=== PATIENT | male | born 1985 | race Hispanic/Latino ===

== ENCOUNTER 2018-10-29 05:28 | Observation (INO) | payer BC ==
--- NOTE | 2018-10-28 09:30 | Diagnostic Imaging Report ---
EXAM: CHEST 2 VIEWS, PA and lateral DATE: 10/28/2018 Time stamp on exam: 9:04 AM INDICATION: Preoperative COMPARISON: None FINDINGS: LINES/TUBES: None LUNGS: No consolidations or edema. PLEURA: No effusions or pneumothorax. HEART AND MEDIASTINUM: Normal size and contour. BONES AND SOFT TISSUES: No acute findings. IMPRESSION: No acute thoracic abnormality. Signed by: Dr. Blake Gaxiola DO on 10/28/2018 9:27 AM
[2018-10-28 10:00] LABS: BASOPHILS # (AUTO) 0.1 (0.0-0.1); BASOPHILS % 1.3 % (0.0-1.0); EOSINOPHILS # (AUTO) 0.1 (0.0-0.4); EOSINOPHILS % 2.1 % (0.0-6.0); HEMATOCRIT 49.2 % (38.2-49.6); HEMOGLOBIN 16.8 g/dL (14.0-18.0); LYMPHOCYTES # (AUTO) 1.5 (1.0-3.2); LYMPHOCYTES % 28.9 % (18.0-39.1); MEAN CORPUSCULAR HEMOGLOBIN 27.5 pg (28-32); MEAN CORPUSCULAR HGB CONC 34.1 g/dL (31-35); MEAN CORPUSCULAR VOLUME 80.5 fL (81-99); MONOCYTES # (AUTO) 0.5 (0.2-0.8); MONOCYTES % 9.4 % (4.4-11.3); PLATELET COUNT 284 x10e3/uL (140-360); RED BLOOD COUNT 6.11 x10e6/uL (4.3-5.7); RED CELL DISTRIBUTION WIDTH 11.8 % (11.7-14.4)
[2018-10-28 10:08] LABS: ANION GAP 14.6 mmol/L (8-16); BLOOD UREA NITROGEN 15 mg/dL (7-26); BUN/CREATININE RATIO 16 (6-25); CARBON DIOXIDE 26 mmol/L (22-29); CHLORIDE 98 mmol/L (98-107); CREATININE, SERUM 0.94 mg/dL (0.72-1.25); EST GLOMERULAR FILTRATION RATE > 60 ML/MIN (60-); GLUCOSE 92 mg/dL (74-118); POTASSIUM 3.6 mmol/L (3.5-5.1); SODIUM 135 mmol/L (136-145)
[~2018-10-29] VITALS: Ht 177.8 cm; Wt 110.2 kg
[~2018-10-29 05:28] MED LIST: HYDROCHLOROTHIA25 MG PO; LEXAPRO10 MG PO; LOTREL 10-20 M1 EACH PO; MULTIVITAMINS1 EAC7 PO; NAPROXEN250 MG PO; ULTRAM50 MG PO; ZYRTEC10 M3 PO
--- OUTSIDE RECORDS SUMMARY | 2018-10-29 05:31 | XMS REPORT ---
Author [facility] Address Unknown Phone Unavailable Care Team Providers Care Rigging Worker Name Role Phone NIKKI MASSEY Unavailable Unavailable Problems This patient has no known problems. Allergies, Adverse Reactions, Alerts This patient has no known allergies or adverse reactions. Medications This patient has no known medications. Results Test Description Test Time Test Comments Text Results Atomic Results Result Comments CHEST 2 VIEWS 2018-10-28 09:25:00 [place] [address] Patient Name: TJ COSME MR #: [id number] : 1985 Age/Sex: 32/M Req #: [id number] [facility] Physician: Ordered by: NIKKI MASSEY MD Report #: [id number] Location: OR Room/Bed: Procedure: [id number] DX/CHEST 2 VIEWS Exam Date: 10/28/18 Exam Time: 0900 REPORT STATUS: Signed EXAM: CHEST 2 VIEWS, PA and lateral DATE: 10/28/2018 Time s tamp on exam: 9:04 AM INDICATION: Preoperative COMPARISON: None FINDINGS: LINES/TUBES: None LUNGS: No consolidations or edema. PLEURA: No effusions or pneumothorax. HEART AND MEDIASTINUM: Normal size and contour. BONES AND SOFT TISSUES: No acute findings. IMPRESSION: No acute thoracic abnormality. Signed by: Dr. Cristopher Gaxiola DO on 10/28/2018 9:27 AM Dictated By: CRISTOPHER GAXIOLA DO 6 Transcribed By: KAYLENE on 10/28/18926 COPY TO: NIKKI MASSEY MD
[2018-10-29] MEDS ORDERED: CEFAZOLIN SOD 2 GM/D5W 50ML 50 ML IV ONE (06:06)
[2018-10-29] MEDS ORDERED: THROMBIN FOR SOLN 5,000 UNIT VIAL ONE (06:42)
[2018-10-29] MEDS ORDERED: BUPIVACAINE 0.5%/EPI 30 ML SDV INJ ONE (06:42)
[2018-10-29 06:43] LABS: INR 0.82; PROTHROMBIN TIME 12.1 seconds (11.9-14.5)
[2018-10-29] MEDS ORDERED: BACITRACIN 50,000 UNIT VIAL ONE (06:43)
[2018-10-29] MEDS ORDERED: GELATIN SPONGE 12-7MM ONE (06:43)
[2018-10-29 06:44] LABS: PARTIAL THROMBOPLASTIN TIME 33.1 seconds (23.8-35.5)
--- NOTE | 2018-10-29 07:10 | NUR ---
SPIRITUAL CARE - Pre-Surgery Assessment: Pt in bed. Pt's parents at bedside. Pt reported supportive attention from family and friends. Intervention: I provided pastoral presence, hospitality, and sympathetic listening. I acquainted pt with availability of flight control tower operator while hospitalized. Outcome: Pt expressed appreciation for visit. No need for follow up indicated at this time. JOAQUINA Guzmanlain Spiritual Care Department O: [phone] Pager: [phone] ([phone] calling from)
[2018-10-29] MEDS ORDERED: ACETAMINOPHEN 1000 MG/100 ML 100 ML IV ONE (07:22)
[2018-10-29] MEDS ORDERED: LIDOCAINE HCL (LTA) 4 ML SOLN ONE (07:22)
[2018-10-29] MEDS: LACTATED RINGER'S 1,000 ML IV SCH ×2 (08:57→17:05)
[2018-10-29] MEDS ORDERED: NON-FORMULARY MEDICATION (Amlodipine Besylate/Benazepril (Lotrel 10-20 Mg Capsule) 1 CAP) PO SCH (09:00)
[2018-10-29] MEDS ORDERED: ACETAMINOPHEN 325 MG TAB PO PRN (09:00)
[2018-10-29] MEDS ORDERED: PROMETHAZINE HCL (IM) 25 MG/ML VIAL IM PRN (09:00)
[2018-10-29] MEDS ORDERED: ONDANSETRON HCL INJ 2MG/ML 2ML 2 MG/ML VIAL IV PRN (09:00)
[2018-10-29] MEDS ORDERED: HYDROMORPHONE 2MG/ML 2 MG/ML ML IV PRN (09:00)
[2018-10-29] MEDS ORDERED: MAGNESIUM/ALUMINUM/SIMETHICONE 30 ML UDC PO PRN (09:00)
[2018-10-29] MEDS ORDERED: MORPHINE SULFATE 5 MG/ML VIAL IM PRN (09:00)
[2018-10-29] MEDS ORDERED: FENTANYL CITRATE/PF 100MCG/2 ML INJ ONE ×2 (09:18→17:49)
[2018-10-29 09:45] VITALS: BP 108/64
[2018-10-29 09:50] VITALS: BP 108/64
[2018-10-29] MEDS: ESCITALOPRAM OXALATE 10 MG TAB PO SCH (11:12)
[2018-10-29] MEDS: HYDROCHLOROTHIAZIDE 25 MG TAB PO SCH (11:12)
[2018-10-29] MEDS: AMLODIPINE BESYLATE 10 MG TAB PO SCH ×2 (11:13→11:26)
[2018-10-29] MEDS: LORATADINE 10 MG TAB PO SCH (11:13)
[2018-10-29] MEDS: BENAZEPRIL HCL 10 MG TAB PO SCH (11:26)
[2018-10-29 12:00] VITALS: BP 119/70
[2018-10-29 12:46] VITALS: BP 119/70
[2018-10-29] MEDS: CEFAZOLIN SOD 1 GM/NS 50ML 50 ML IV SCH ×2 (13:25→22:26)
[2018-10-29] MEDS: OXYCODONE/ACETAMINOPHEN 5-325 1 EACH TABLET PO PRN ×2 (13:38→18:15)
[2018-10-29] MEDS ORDERED: ONDANSETRON HCL INJ 2MG/ML 2ML 2 MG/ML VIAL ONE ×2 (14:27→14:34)
[2018-10-29] MEDS ORDERED: DEXAMETHASONE SOD PHOS INJ 4 MG/ML VIAL ONE ×2 (14:27→14:34)
[2018-10-29] MEDS ORDERED: EPHEDRINE SULFATE INJ 50 MG/10 ML SYR ONE (14:27)
[2018-10-29] MEDS ORDERED: SEVOFLURANE INHAL SOLN 250 ML PEN BTL ONE ×2 (14:27→14:34)
[2018-10-29] MEDS ORDERED: PROPOFOL IV EMULSION 10 MG/ML 20 ML VIAL ONE ×2 (14:27→14:34)
[2018-10-29] MEDS ORDERED: LIDOCAINE HCL 2% LOCAL INJ 5 ML SDV VIAL INJ ONE ×2 (14:27→14:34)
[2018-10-29] MEDS ORDERED: GLYCOPYRROLATE INJ 1MG/ 5 ML SYR ONE (14:27)
[2018-10-29] MEDS ORDERED: NEOSTIGMINE 5 MG/5ML SYR ONE (14:27)
[2018-10-29] MEDS ORDERED: ROCURONIUM BROMIDE 10 MG/ML 5ML VIAL ONE ×2 (14:27→14:34)
[2018-10-29] MEDS ORDERED: ACETAMINOPHEN 1000 MG/100 ML IV ONE (14:34)
[2018-10-29] MEDS: CEPACOL SORE THROAT LOZENGES PO PRN ×4 (16:07→22:26)
[2018-10-29] MEDS: CARISOPRODOL 350 MG TAB PO PRN ×2 (16:07→20:05)
[2018-10-29 16:37] VITALS: BP 126/73
[2018-10-29] MEDS ORDERED: MIDAZOLAM HCL 2 MG/2 ML VIAL ONE (17:49)
--- NOTE | 2018-10-29 19:03 | Operative Report ---
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 PROCEDURES: 1. C5-6 anterior cervical diskectomy and microsurgical osteophyte resection and allograft fusion, 80162. 2. Preparation of MTF corticocancellous allograft, 69103. 3. C5-6 anterior cervical plating with Synthes ZPN plate, 07830. ANESTHESIA: General. INDICATION: The patient is a 32-year-old man, who presents with left-sided C5-6 disk osteophyte complex symptomatic with left C6 radiculopathy and was taken to the operating room for anterior cervical decompression and fusion. PROCEDURE IN DETAIL: After induction of general anesthesia, the patient was placed on the operating table in supine position. The right side of the neck was prepped and draped in sterile fashion. The fluoroscopic C-arm was positioned in cross-table lateral orientation. A transverse incision was created on the right side of the neck. The platysma was divided in line with the incision and subplatysmal dissection was carried out and avascular plane of the dissection was developed medially in sternocleidomastoid muscle and was followed medially to the carotid sheath to the anterior part of the cervical spine. The deep cervical fascia was opened and esophagus was retracted to the left. The attachments of the longus colli muscles to the anterolateral aspects of vertebral bodies of C5 and C6 were divided. The anterior longitudinal ligament was resected. The [place] posts were inserted into C5 and C6 and the [place] distractor was used distract the disk space. The anterior annulus of the disk was incised with #11 blade. The contents of the disk were thoroughly evacuated with angled curettes and pituitary rongeurs. The posterior osteophytes were meticulously drilled with a 2 mm cutting blade until they were completely removed. The posterior annulus of the disk, herniated disk material, and the posterior longitudinal ligament were resected layer by layer until the dura was fully exposed and decompressed. The medial aspects of the uncinate processes were resected bilaterally with attention given to the left side to fully expose and decompress the origins of both C6 nerve roots. After satisfactory decompression had been achieved, the endplates were prepared for fusion. The disk space was sized and found to be 8 mm in height. A piece of MTF corticocancellous allograft measuring 8 mm in thickness was selected and prepared in saline and loaded onto a Synthes ZPN plate. The plate was inserted into the C5-6 disk space under distraction and lateral fluoroscope guidance and tamped in place until the anterior margin of the plate was flush with the anterior margin of the vertebral bodies. The plate was then screwed to the C5 and C6 endplates with two pairs of 14 mm screws. All the screws were locked and excellent construct was obtained. The wound was copiously irrigated with bacitracin solution. Meticulous hemostasis was secured. Retraction was removed. The platysma was closed with 3-0 Vicryl sutures. The skin was closed with 4-0 Vicryl sutures in subcuticular fashion. Steri-strips and dressing were applied. The patient was awakened, extubated, and taken to postanesthesia care unit in stable condition. No intraoperative complications were encountered. Estimated blood loss was 10 mL. Addy Barrientos MD PP/ELSI /[id number]
[2018-10-29 20:00] VITALS: BP 126/63
--- NOTE | 2018-10-29 20:05 | NUR ---
DRESSING DRY AND INTACT TO THE ANTERIOR NECK WITH SOFT COLLAR ON, NO RESPIRATORY DISTRESS OBSERVED. PATIENT C/O PAIN TO THE NECK WITH PAIN SCORE #4 AND THROAT IRRITATION, MEDICATED WITH SOMA 1TAB AND CEPACOL 1TAB ORDERED. WARM BROTH GIVEN, CALL LIGHT WITHIN EASY REACH, INSTRUCTED TO CALL FOR ASSISTANCE NEEDED.
[2018-10-29] MEDS ORDERED: ZOLPIDEM TARTRATE 5 MG TAB PO PRN (21:00)
[2018-10-30] VITALS: BP 147/80
--- NOTE | 2018-10-30 00:41 | NUR ---
PATIENT IS ASLEEP, HE'S EASY TO AROUSE. HE STATES MILD PAIN TO THE NECK BUT DOES NOT WANT PAIN MEDICATION AT THIS TIME. CALL LIGHT WITHIN EASY REACH, INSTRUCTED TO CALL FOR ASSISTANCE NEEDED.
[2018-10-30] MEDS: OXYCODONE/ACETAMINOPHEN 5-325 1 EACH TABLET PO PRN ×2 (02:07→06:48)
[2018-10-30 04:00] VITALS: BP 114/65
--- NOTE | 2018-10-30 06:29 | NUR ---
PATIENT IS OFF THE UNIT PER WHEELCHAIR TO RADIOLOGY FOR X-RAY.
--- NOTE | 2018-10-30 06:43 | Diagnostic Imaging Report ---
Cervical Spine, 2 views HISTORY: Pain COMPARISON: None. FINDINGS: Limited sensitivity for detection of subtle fractures and ligamentous abnormalities. On the lateral view, the cervical spine is visualized from the skull base to C7. The alignment is normal. No acute displaced fracture involving the visualized cervical spine. Status post C5-C6 disc spacer placement. Vertebral body heights are maintained. Mild prevertebral soft tissue swelling and emphysema, likely postsurgical. IMPRESSION: Status post C5-C6 disc spacer placement. Mild prevertebral soft tissue swelling and emphysema, likely postsurgical. Signed by: Dr. Kenan Paniagua MD on 10/30/2018 6:40 AM
[2018-10-30] MEDS: CEPACOL SORE THROAT LOZENGES PO PRN (06:48)
[2018-10-30] MEDS: CEFAZOLIN SOD 1 GM/NS 50ML 50 ML IV SCH (06:48)
--- NOTE | 2018-10-30 06:49 | NUR ---
PATIENT BACK ON THE UNIT FROM RADIOLOGY; HE C/O SORE THROAT, SHOULDER AND NECK PAIN. MEDICATED WITH CEPACOL AND PERCOCET 1TAB ORDERED. CALL LIGHT WITHIN EASY REACH, INSTRUCTED TO CALL FOR ASSISTANCE NEEDED.
[2018-10-30] MEDS: ESCITALOPRAM OXALATE 10 MG TAB PO SCH (08:28)
[2018-10-30] MEDS: LORATADINE 10 MG TAB PO SCH (08:31)
[2018-10-30 08:36] VITALS: BP 119/79
[2018-10-30] MEDS: HYDROCHLOROTHIAZIDE 25 MG TAB PO SCH (08:39)
[2018-10-30] MEDS: AMLODIPINE BESYLATE 10 MG TAB PO SCH (08:41)
[2018-10-30] MEDS: BENAZEPRIL HCL 10 MG TAB PO SCH (08:47)
--- NOTE | 2018-10-30 08:48 | NUR ---
Patient refused Lotensin 20mg he took 10mg PO at his request.
--- NOTE | 2018-10-30 09:20 | NUR ---
Patient discharged home verbalized understanding of d/c instructions.
== END 2018-10-30 09:20 | disposition home or self-care (01) ==
LOC: OR 05:28 → PACU V 08:57 → IMCU 09:56
PROVIDERS: ADMIT Neurological Surgery; ATTEND Neurological Surgery
DX: M50.122 Cervical disc disorder at C5-C6 level with radiculopathy (principal)
CPT/HCPCS: 20931; 22551; 22845; 36415; 71046; 72040; 77003; 80048; 85025; 85610; 85730; 86850; 86900; 88304; 93005; 96365; 96367; C1713 ×2; C9359; G0378 ×2; J0131; J0690 ×3; J1100; J1170; J2001; J2250; J2405; J2704; J3490; J7121